=== PATIENT | female | born 1965 | race Caucasian/White ===

== ENCOUNTER 2018-09-28 22:29 | Emergency (ER) | payer SELFPAY ==
[~2018-09-28] VITALS: Ht 157.5 cm; Wt 63.6 kg
[2018-09-28 22:36] VITALS: Ht 157.5 cm; Wt 63.6 kg
[2018-09-29] MEDS ORDERED: NAPR-985 PO (00:28)
[2018-09-29] MEDS ORDERED: HYDR-4011 PO (00:28)
--- NOTE | 2018-09-29 03:22 | ERD ---
ER Documentation Chief Complaint Chief Complaint R knee pain s/p injury at work HPI 53-year-old female presenting with knee pain. Patient fell down the stairs at work and twisted her knee. She states she has pain when she walks. She feels that her knee is going to give out on her. She has not taken medications for p ain. Denies any numbness or tingling. States that she has had ACL surgery to this knee in the past. Denies other medical problems. Allergic to penicillin. Surgical history ACL repair of the right knee. Social history denies ROS All systems reviewed and are negative except as per history of present illness. Medications Home Meds Active Scripts Hydrocodone/Acetaminophen ([place] 5-325 Tablet) 1 Each Tablet, 1 TAB PO Q6H PRN for PAIN, #7 TAB Prov:ABDULAZIZ ENNIS PA-C 09/29/18 Naproxen* (Naprosyn*) 500 Mg Tablet, 500 MG PO BID PRN for PAIN AND/OR INFLA MMATION, #30 TAB Prov:ABDULAZIZ ENNIS PA-C 09/29/18 PMhx/Soc Medical and Surgical Hx: pt denies Medical Hx History of Surgery: Yes (knee surgery) Hx Alcohol Use: No Hx Substance Use: No Hx Tobacco Use: No Smoking Status: Never smoker FmHx Family History: No diabetes, No coronary disease, No other Physical Exam Vitals Vital Signs Date Temp Pulse Resp B/P (MAP) Pulse Ox O2 O2 Flow FiO2 Time Delivery Rate 09/28/18 98.6 81 20 130/68 100 22:36 (88) Physical Exam GENERAL: The patient is well-appearing, well-nourished, in no acute distress CHEST: Clear to auscultation bilaterally. There are no rales, wheezes or rhonchi. HEART: Regular rate and rhythm. No murmurs, clicks, rubs or gallops. EXTREMITIES: Tender to palpation to the lateral aspect of the right knee. No obvious deformity. No valgus or varus deformity. Strength 5 out of 5 and normal range of motion. No erythema or swelling noted. Contusion noted to the distal thigh lateral. NEUROLOGIC: Alert and oriented. Cranial nerves II through XII intact. Motor strength in all 4 extremities with 5 out of 5 strength. Sensation grossly intact. Normal speech and gait. Babinski negative. DTR 2+ throughout. SKIN: There is no apparent rash or petechiae. The skin is warm and dry. Procedures/MDM DIAGNOSTIC IMAGING REPORT Patient: CAROL ALLRED : 1965 Age: 53 Sex: F [id number] DOS: 09/28/18 7995 Ordering MD: PADMINI ENNIS PA-C Location: [facility] Room/Bed: PROCEDURE: Right knee x-ray CLINICAL INDICATION: Knee pain TECHNIQUE: AP, lateral and oblique views of the right knee were obtained. COMPARISON: None FINDINGS: No acute fracture identified. Alignment and mineralization are normal. There are no significant degenerative changes. There is no joint effusion. There is no significant soft tissue swelling. IMPRESSION: Negative right knee ER course: Navin wrap and crutches given the ED. Patient neuro intact pre-and post Navin wrap application. MDM: 53-year-old female presenting with knee pain. I have low suspicion for a cute fracture dislocation. I have low suspicion for tendon or ligament rupture. Patiently may have strained and is recommended to follow-up with orthopedist as she may benefit from an MRI. Patient is told if symptoms change or worsen to return immediately to the ER. All questions answered at discharge Departure Diagnosis: Primary Impression: Knee pain Condition: Stable Patient Instructions: Knee Sprain Referrals: [facility] YOU HAVE RECEIVED A MEDICAL SCREENING EXAM AND THE RESULTS INDICATE THAT YOU DO NOT HAVE A CONDITION THAT REQUIRES URGENT TREATMENT IN THE EMERGENCY DEPARTMENT. FURTHER EVALUATION AND TREATMENT OF YOUR CONDITION CAN WAIT UNTIL YOU ARE SEEN IN YOUR DOCTORS OFFICE WITHIN THE NEXT 1-2 DAYS. IT IS YOUR RESPONSIBILITY TO MAKE AN APPOINTMENT FOR FOLOW-UP CARE. IF YOU HAVE A PRIMARY DOCTOR --you should call your primary doctor and schedule an appointment IF YOU DO NOT HAVE A PRIMARY DOCTOR YOU CAN CALL OUR PHYSICIAN REFERRAL HOTLINE AT IF YOU CAN NOT AFFORD TO SEE A PHYSICIAN YOU CAN CHOSE FROM THE FOLLOWING [facility] [address] [place] [facility] [address] [facility] [address] [facility] [address] [facility]. [facility] [address] [facility]. [facility] [address] Additional Instructions: FOLLOW UP WITH YOUR PRIMARY CARE PHYSICIAN TOMORROW.Return to this facility if you are not improving as expected. ABDULAZIZ ENNIS PA-C Sep 29, 2018 03:22
== END 2018-09-29 00:54 | disposition home or self-care (01) ==
LOC: FTE 22:29
DX: M25.561 Pain in right knee (principal)
CPT/HCPCS: 73562